=== PATIENT | female | born 1955 | race Caucasian/White ===

== ENCOUNTER 2018-02-19 12:26 | Day surgery (SDC) | payer BC, OTHER, MEDICAID ==
[2018-02-19] MEDS ORDERED: PROPOFOL 40 ML (13:52)
== END 2018-02-19 14:51 | disposition home or self-care (01) ==
LOC: GIL 12:26
DX: K64.8 Other hemorrhoids (principal); E03.9 Hypothyroidism, unspecified; Z86.73 Personal history of transient ischemic attack (TIA), and cerebral infarction without residual deficits
CPT/HCPCS: 45378